=== PATIENT | male | born 1995 | race African-American/Black ===

== ENCOUNTER 2016-06-26 22:42 | Emergency (ER) | payer BC ==
[~2016-06-26] VITALS: Ht 182.9 cm; Wt 67.5 kg
[2016-06-26 22:44] VITALS: TEMP 37; Ht 182.9 cm; Wt 67.5 kg
[2016-06-26] MEDS ORDERED: PROMETHAZINE HCL INJ 6.25 MG in SODIUM CHLORIDE 0.9% 50ML 50 ML IV STA (23:01)
[2016-06-26] MEDS ORDERED: NAPR1TAB9 PO (23:01)
[2016-06-26] MEDS ORDERED: ONDANSETRON INJ 2 MG/ML 2 ML VIAL IV STA (23:01)
[2016-06-26] MEDS ORDERED: SODIUM CHLORIDE 0.9% 1000ML 2,000 ML IV STA (23:01)
[2016-06-26] MEDS ORDERED: ACETAMINOPHEN 500 MG TAB PO STA (23:01)
[2016-06-26] MEDS ORDERED: KETOROLAC TROMETHAMINE 30 MG/ML VIAL IV STA (23:01)
--- NOTE | 2016-06-26 23:07 | EMERGENCY ROOM VISIT NOTE ---
History Report prepared by Shantelleibgayathri: Sisi Santo Under the Supervision of: Dr. Leobardo Robles M.D. First contact with patient: 22:55 Chief Complaint: VOMITING Stated Complaint: VOMITING BLOOD,YELLOW VOMIT,HEADACHE,FEVER,CHILLS History of Present Illness The patient is a 20 year old male who presents to the Emergency Room with complaints of persistent nausea and vomiting for the past day. He is accompanied by his girlfriend. He reports his vomit is yellow in color and the most recent time he vomited, it was blood tinged. He also complains of a headache and abdominal pain. Aleve has provided minor relief for his pain. The patient is a [employer] student and admits to drinking alcohol yesterday but denies any drinking today. He denies eating anything recently that could have made him sick. He states he has been unable to keep any water down and he thinks he may be dehydrated. He tried drinking both water and Gatorade, but states he vomited them back up. His girlfriend notes he has not urinated much at all today. The patient denies any diarrhea. He also thinks he has a fever and has been experiencing the chills. He denies any medication allergies. Source of History: patient, spouse/significant other Onset: 1 day [employer]UTRITION INSTRU[employer] Position: other (global) Timing: other (persistent) Associated Symptoms: + abdominal pain, + chills, + fevers, + headache, No diarrhea, No urinary symptoms Review of Systems See HPI for pertinent positives & negatives. A total of 10 systems reviewed and were otherwise negative. Past Medical & Surgical Medical Problems: (1) No significant past medical history Social History Smoking Status: Current Every Day Smoker Alcohol Use: occasionally Drug Use: none Marital Status: in relationship Housing Status: lives with roommate Occupation Status: [employer] student Current/Historical Medications Scheduled Naproxen (Aleve), 440 MG PO PRN UD Omeprazole (Prilosec), 20 MG PO DAILY Ondasetron Odt (Zofran Odt), 4-8 MG SL Q6H Physical Exam Vital Signs Date Time Temp Pulse Resp B/P Pulse Ox O2 Delivery O2 Flow Rate FiO2 06/26/16 22:44 37.0 83 20 121/84 96 Room Air Physical Exam GENERAL: Patient is in no acute distress. HEENT: No acute trauma, normocephalic atraumatic, mucous membranes moist, no nasal congestion, no scleral icterus. No throat erythema or exudate. NECK: No stridor, no adenopathy, no meningismus, trachea is midline. LUNGS: Clear to auscultation bilaterally, no wheeze, no rhonchi, breath sounds equal. HEART: Without murmurs gallops or rubs, regular rate and rhythm. ABDOMEN: Soft, nontender, bowel sounds positive, no hernias, no peritonitis. EXTREMITIES: No cyanosis or edema, full range of motion of all the joints without pain or difficulty, no signs for acute trauma. NEUROLOGIC: Oriented x 3, no acute motor or sensory deficits, no focal weakness. SKIN: No rash, no jaundice, no diaphoresis. Medical Decision & Procedures ER Provider Diagnostic Interpretation: This X-Ray was reviewed and interpreted by myself as we do not have a radiologist on staff overnight. Chest/Abdomen X-Ray, 2 views There is no pneumonia, free air or bowel obstruction seen on X-Ray. Laboratory Results 06/26/16 23:01 Red Blood Count 5.84, Mean Corpuscular Volume 75.9, Mean Corpuscular Hemoglobin 27.4, Mean Corpuscular Hemoglobin Concent 36.1, Mean Platelet Volume 9.6, Neutrophils (%) (Auto) 78.6, Lymphocytes (%) (Auto) 15.4, Monocytes (%) (Auto) 5.7, Eosinophils (%) (Auto) 0.0, Basophils (%) (Auto) 0.1, Neutrophils # (Auto) 7.03, Lymphocytes # (Auto) 1.38, Monocytes # (Auto) 0.51, Eosinophils # (Auto) 0.00, Basophils # (Auto) 0.01 06/26/16 00:00 Test 06/26/16 00:00 06/26/16 23:01 06/27/16 00:37 Anion Gap 10.0 mmol/L (3-11) Est Creatinine Clear Calc Drug Dose 111.7 ml/min Estimated GFR () 124.8 Estimated GFR (Non- 107.7 BUN/Creatinine Ratio 13.7 (10-20) Calcium Level 9.7 mg/dl (8.5-10.1) Total Bilirubin 1.0 mg/dl (0.2-1) Aspartate Amino Transf (AST/SGOT) 23 U/L (15-37) Alanine Aminotransferase (ALT/SGPT) 17 U/L (12-78) Alkaline Phosphatase 68 U/L (45-117) Total Protein 8.6 gm/dl (6.4-8.2) Albumin 4.9 gm/dl (3.4-5.0) Globulin 3.7 gm/dl (2.5-4.0) Albumin/Globulin Ratio 1.3 (0.9-2) Lipase 112 U/L (73-393) White Blood Count 8.95 K/uL (4.8-10.8) Red Blood Count 5.84 M/uL (4.7-6.1) Hemoglobin 16.0 g/dL (14.0-18.0) Hematocrit 44.3 % (42-52) Mean Corpuscular Volume 75.9 fL (80-100) Mean Corpuscular Hemoglobin 27.4 pg (25-34) Mean Corpuscular Hemoglobin Concent 36.1 g/dl (32-36) Platelet Count 271 K/uL (130-400) Mean Platelet Volume 9.6 fL (7.4-10.4) Neutrophils (%) (Auto) 78.6 % Lymphocytes (%) (Auto) 15.4 % Monocytes (%) (Auto) 5.7 % Eosinophils (%) (Auto) 0.0 % Basophils (%) (Auto) 0.1 % Neutrophils # (Auto) 7.03 K/uL (1.4-6.5) Lymphocytes # (Auto) 1.38 K/uL (1.2-3.4) Monocytes # (Auto) 0.51 K/uL (0.11-0.59) Eosinophils # (Auto) 0.00 K/uL (0-0.5) Basophils # (Auto) 0.01 K/uL (0-0.2) RDW Standard Deviation 36.4 fL (36.4-46.3) RDW Coefficient of Variation 13.2 % (11.5-14.5) Immature Granulocyte % (Auto) 0.2 % Immature Granulocyte # (Auto) 0.02 K/uL (0.00-0.02) Laboratory results reviewed by me. Urine dip was negative for infection, ketones noted to be consistent with dehydration. Medications Administered Medications (Trade) Dose Ordered Sig/Elvis Route Start Time Stop Time Status Last Admin Dose Admin Sodium Chloride (Nss 1000ml) 2,000 ml @ 999 mls/hr Q2H1M STAT IV 06/26/16 23:01 06/27/16 01:01 DC 06/26/16 23:52 999 MLS/HR Ondansetron HCl (Zofran Inj) 4 mg NOW STAT IV 06/26/16 23:01 06/26/16 23:04 DC 06/26/16 23:54 4 MG Ketorolac Tromethamine (Toradol Inj) 30 mg NOW STAT IV 06/26/16 23:01 06/26/16 23:04 DC 06/26/16 23:53 30 MG Promethazine HCl (Phenergan Inj) 25 mg STK-MED ONCE .ROUTE 06/26/16 23:40 06/26/16 23:41 DC 06/26/16 23:54 25 MG ED Course 2259: The patient was evaluated in room C6. A complete history and physical exam was performed. 2301: Acetaminophen 1000 mg PO, Promethazine HCl 6.25 mg/NSS 50.25 ml @ 204 mls/ hr IV, Toradol 30 mg IV, Zofran 4 mg IV, NSS 2000 ml @ 999 mls/hr IV. 2340: Phenergan 25 mg IV. 0048: I reevaluated the patient. He is feeling well and ready to go home. I discussed his results and discharge instructions and he verbalized complete understanding and agreement. 0100: Zofran 4 mg 1 home pack PO. Medical Decision The differential diagnoses considered include viral illness, appendicitis, biliary colic, bowel obstruction, food borne illness, dehydration and electrolyte imbalance. There is no leukocytosis or concerning anemia. No significant electrolyte abnormality, kidney failure or hepatitis. No pancreatitis. Obstruction series shows no pneumonia, free air or bowel obstruction. Urine dip shows dehydration , no infection. On exam, the patient was not febrile or toxic. There was no peritonitis. Patient received IV Toradol, IV Zofran, IV Phenergan and IV saline. He feels markedly better. The patient is being discharged with Zofran for nausea, I'm going to give him some Prilosec for stomach upset. The patient was encouraged to slowly advance his diet. If he is worsening or not improving, he should return for reassessment. At this point, the illness appears viral. I did discuss the possibility of early appendicitis with the patient. Impression Primary Impression: Dehydration Additional Impression: Vomiting Scribe Attestation The scribe's documentation has been prepared under my direction and personally reviewed by me in its entirety. I confirm that the note above accurately reflects all work, treatment, procedures, and medical decision making performed by me. Departure Information Dispostion Home / Self-Care Prescriptions Omeprazole (PRILOSEC) 20 Mg Capcr 20 MG PO DAILY, #30 CAP Prov: Leobardo Robles M.D. 06/27/16 Ondasetron Odt (ZOFRAN ODT) 4 Mg Tab 4-8 MG SL Q6H for Nausea, #6 TAB Prov: Leobardo Robles M.D. 06/27/16 Referrals No Doctor, Assigned (PCP) Patient Instructions [facility] Additional Instructions tylenol for pain rest bland diet---crackers, soup, toast, gatorade zofran 1-2 tab every 6 hours for nausea prilosec daily for 1 month for your stomach return if worsening or not improving Problem Qualifiers
[2016-06-26] MEDS ORDERED: PROMETHAZINE HCL INJ 25 MG/ML 1 ML VIAL ONE (23:40)
[2016-06-27 00:07] LABS: BASO % 0.1 %; BASO ABS # 0.01 K/uL (0-0.2); COMPLETE YES; HEMATOCRIT 44.3 % (42-52); IG% 0.2 %; LYMPH % 15.4 %; LYMPH ABS # 1.38 K/uL (1.2-3.4); MEAN CELL VOLUME 75.9 fL (80-100); MEAN CORPUSCULAR HEMOGLOBIN 27.4 pg (25-34); MEAN CORPUSCULAR HGB CONC 36.1 g/dl (32-36); MEAN PLATELET VOLUME 9.6 fL (7.4-10.4); MONO % 5.7 %; NEUT % 78.6 %; PLATELET COUNT 271 K/uL (130-400); RED BLOOD COUNT 5.84 M/uL (4.7-6.1); WHITE BLOOD COUNT 8.95 K/uL (4.8-10.8)
[2016-06-27] MEDS ORDERED: PRLSR20 PO (00:54)
[2016-06-27] MEDS ORDERED: ONDA4TAB10 SL (00:54)
[2016-06-27] MEDS ORDERED: ONDANSETRON HOME PACK 4MG OD TAB PO ONE (01:00)
[2016-06-27 01:10] VITALS: PULSE 70
[2016-06-27 01:10] LABS: URINE APPEARANCE CLEAR (CLEAR); URINE BILIRUBIN NEG (NEG); URINE COLOR DK YELLOW; URINE NITRITE NEG (NEG); URINE PH 5.5 (4.5-7.5); URINE SPECIFIC GRAVITY 1.028 (1.000-1.030); UROBILINOGEN NEG (NEG); ZZUR CULT IF INDIC CLEAN CATCH NO
[2016-06-27] MEDS ORDERED: ACETAMINOPHEN 500 MG TAB PO ONE (01:10)
[2016-06-27 01:14] LABS: MANUAL MICROSCOPIC REQUIRED? NO; REVIEW REQ? NO
[2016-06-27 01:15] VITALS: BP 133/80; O2SAT 99
--- NOTE | 2016-06-27 08:22 | DIAGNOSTIC IMAGING REPORT ---
CHEST AND ABDOMEN 2 VIEWS HISTORY: Mid abdominal pain. Nausea. Vomiting. COMPARISON: None. FINDINGS: The lungs are clear. The cardiomediastinal silhouette is within normal limits. There is no pneumoperitoneum or pneumatosis. The bowel gas pattern is unremarkable. No evidence for bowel obstruction. Calcifications of the deep pelvis likely represent phleboliths. IMPRESSION: No acute cardiopulmonary process. No evidence for bowel obstruction. Electronically signed by: Onel Dupree M.D. 06/27/2016 8:21 AM Dictated Date/Time: 06/27/2016 8:20 AM
== END 2016-06-27 01:15 | disposition home or self-care (01) ==
LOC: C.EDB 22:44 → C.EDC 06-27 01:15
DX: E86.0 Dehydration (principal); R11.10 Vomiting, unspecified; F17.200 Nicotine dependence, unspecified, uncomplicated